=== PATIENT | female | born 1965 | race Caucasian/White ===

== ENCOUNTER → 2016-10-25 | Outpatient (CLI) | payer BC ==
--- NOTE | 2016-10-25 17:16 | PCVCIMAG ---
APPROVED REPORT Study performed: 10/25/2016 14:48:37 EXAM: Comprehensive 2D, Doppler, and color-flow Echocardiogram Patient Location: Echo lab Status: routine BSA: 2.24 HR: 86 bpmBP: 102/58 mmHg Rhythm: NSR Other Information Study Quality: Technically Difficult Indications Peripheral Edema 2D Dimensions LVEF(%): 76.57 (>50%) IVSd: 6.81 (7-11mm)LVOT Diam: 20.18 (18-24mm) LVDd: 42.22 mm PWd: 9.65 (7-11mm)Ascending Ao: 29.76 (22-36mm) LVDs: 23.26 (25-40mm) Left Atrium: 37.17 (27-40mm) Aortic Root: 25.97 mm LV Single Plane 4CH: 57.85 % LV Single Plane 2CH: 60.41 %Kay's LVEF: 59.13 % Volumes Left Atrial Volume (Systole) Single Plane 4CH: 58.55 mLSingle Plane 2CH: 34.19 mL Biplane LA Volume: 50.00 mLLA ESV Index: 22.00 mL/m2 Aortic Valve AoV Peak Mohamud.: 1.67 m/s AO Peak Gr.: 11.13 mmHgLVOT Max P.73 mmHg LVOT Max V: 0.83 m/s DESIREE Vmax: 1.58 cm2 Mitral Valve E/A Ratio: 0.7 MV Decel. Time: 210.28 ms MV E Max Mohamud.: 0.87 m/s MV A Mohamud.: 1.19 m/s MV PHT: 60.98 ms IVRT: 110.73 ms Pulmonary Valve PV Peak Mohamud.: 1.09 m/sPV Peak Gr.: 4.75 mmHg Pulmonary Vein P Vein S: 0.48 m/sP Vein A: 0.35 m/s P Vein D: 0.32 m/sP Vein A Dur.: 103.8 msec P Vein S/D Ratio: 1.50 Tricuspid Valve TR Peak Mohamud.: 2.77 m/s TR Peak Gr.: 30.78 mmHg TV Vmax: 0.66 m/sPA Pressure: 38.00 mmHg Left Ventricle The left ventricle is normal size. There is normal LV segmental wall motion. There is normal left ventricular wall thickness. Left ventricular systolic function is normal. The left ventricular ejection fraction is within the normal range. LVEF is 60%. Grade I - abnormal relaxation pattern. Right Ventricle The right ventricle is normal size. The right ventricular systolic function is normal. Atria The left atrium size is normal. The right atrium size is normal. Aortic Valve The aortic valve is normal in structure. No aortic regurgitation is present. There is no aortic valvular stenosis. Mitral Valve The mitral valve is normal in structure. There is no mitral valve regurgitation noted. No evidence of mitral valve stenosis. Tricuspid Valve The tricuspid valve is normal in structure. Mild tricuspid regurgitation with a PA pressure of 38mmHg. Pulmonic Valve The pulmonary valve is normal in structure. There is no pulmonic valvular regurgitation. Great Vessels The aortic root is normal in size. The aortic root is not well visualized but is probably normal size. There is aortic root dilation. There is aortic root sclerosis/calcification. Aortic root is normal in size. IVC is normal in size and collapses with >50% inspiration Pericardium There is no pericardial effusion. <Conclusion> The left ventricle is normal size. LVEF is 60%. The aortic valve is normal in structure. The mitral valve is normal in structure. The tricuspid valve is normal in structure. The pulmonary valve is normal in structure.
== END | disposition home or self-care (01) ==
LOC: PCVCIMAG 14:00
PROVIDERS: ATTEND Internal Medicine
DX: I07.1 Rheumatic tricuspid insufficiency (principal); E78.5 Hyperlipidemia, unspecified
CPT/HCPCS: 93306